=== PATIENT | male | born 1985 | race African-American/Black ===

== ENCOUNTER 2016-12-01 19:51 | Emergency (ER) | payer MEDICAID ==
[~2016-12-01] VITALS: Ht 182.9 cm; Wt 77.1 kg
[2016-12-01 20:10] VITALS: BP 133/76
== END 2016-12-01 21:47 | disposition left against medical advice (07) ==
LOC: ER 19:56
DX: S01.112A Laceration without foreign body of left eyelid and periocular area, initial encounter (principal); Z53.21 Procedure and treatment not carried out due to patient leaving prior to being seen by health care provider; Y08.89XA Assault by other specified means, initial encounter; Y93.89 Activity, other specified; Y99.8 Other external cause status; Y92.89 Other specified places as the place of occurrence of the external cause

== ENCOUNTER 2020-01-17 12:13 | Emergency (ER) | payer MEDICAID ==
[~2020-01-17] VITALS: Ht 182.9 cm; Wt 77.1 kg
[2020-01-17 15:39] VITALS: BP 118/77
== END 2020-01-17 15:43 | disposition home or self-care (01) ==
LOC: ER 12:13
DX: L02.411 Cutaneous abscess of right axilla (principal)

== ENCOUNTER 2020-01-29 08:08 | Emergency (ER) | payer MEDICAID ==
[~2020-01-29] VITALS: Ht 182.9 cm; Wt 77.1 kg
[2020-01-29] MEDS ORDERED: KETOROLAC TROMETH 60MG/2ML VIAL IM ONE (08:30)
[2020-01-29] MEDS ORDERED: methylPREDNISolone SOD SUCC 125 MG/2 ML VL IM ONE (13:30)
[2020-01-29] MEDS ORDERED: PANTOPRAZOLE 40 MG TAB PO ONE (13:30)
[2020-01-29 14:35] VITALS: BP 138/88
== END 2020-01-29 14:37 | disposition home or self-care (01) ==
LOC: ER 08:08
DX: S33.5XXA Sprain of ligaments of lumbar spine, initial encounter (principal); X58.XXXA Exposure to other specified factors, initial encounter; Y93.89 Activity, other specified; Y92.89 Other specified places as the place of occurrence of the external cause; Y99.8 Other external cause status
CPT/HCPCS: 72110; 96372; 99283; J1885